=== PATIENT | male | born 1980 | race African-American/Black ===

== ENCOUNTER 2020-10-18 08:26 | Emergency (ER) | payer OTHER, SELFPAY ==
[2020-10-18 08:36] VITALS: BP 161/99; PULSE 88; RESP 20; TEMP 37.2; O2SAT 99
--- NOTE | 2020-10-18 08:40 | ED_ITS ---
HPI - Wound/Laceration General Chief Complaint: Wound/Laceration Stated Complaint: L HAND WOUND Time Seen by Provider: 10/18/20 08:39 History of Present Illness HPI narrative: 40 yo male presents to the ED for hand swelling. He first noted a bump on his left hand near the base of his little finger 2 days ago. Since that time it has become larger and more painful. He now has a small draining wound at the center. No trauma, fever, chills, nausea. Related Data Allergies Allergy/AdvReac Type Severity Reaction Status Date / Time No Known Allergies Allergy Verified 10/18/20 08:34 Review of Systems Review of Systems: All systems reviewed & are unremarkable except as noted in HPI and below Constitutional: Constitutional: Denies chills, Denies fever(s) and Denies weakness Cardiovascular: Cardiovascular: Denies chest pain Respiratory: Respiratory: Denies dyspnea Gastrointestinal: Gastrointestinal: Denies nausea Musculoskeletal: Musculoskeletal: Denies myalgias Neurologic: Denies numbness and Denies weakness ON LICENSE OF [facility] Past Medical History Medical History (Updated 10/21/20 @ 12:10 by Joselito Galvez MD) Healthy adult Social History Social History Gender identity (if verbalized by the patient): Male Exam Const: General: healthy appearing, no acute distress and alert Orientation/consciousness: patient oriented x3 HENMT: Head: normal to inspection Resp: Effort & Inspection: normal respiratory effort Auscultation: clear to auscultation bilaterally Cardio: Rate: regular rate Rhythm: regular rhythm Skin: Other: Abscess to medial suface of left hand. Small overlying wound with serous drainage. Neuro: General: patient oriented x3, moves all extremities, no focal motor deficits and CN's II-XI intact bilaterally Speech: normal speech Other: distla motor and sensory intact in left hand Extrem: Other: full ROM Course Vital Signs Vital signs: Vital Signs Temperature 37.2 C 10/18/20 08:36 Pulse Rate 88 10/18/20 08:36 Respiratory Rate 20 10/18/20 08:36 Blood Pressure 161/99 H 10/18/20 08:36 Pulse Oximetry 99 10/18/20 08:36 Temperature 37.2 C 10/18/20 08:36 Pulse Rate 80 10/18/20 10:02 Respiratory Rate 20 10/18/20 10:02 Blood Pressure 161/99 H 10/18/20 08:36 Pulse Oximetry 99 10/18/20 10:02 Procedures Abscess I/D hand: Side (if applicable): left Local Anesthetic: lidocaine 1% Amount of anesthesia used (mL): 4 Technique: incised with #11 blade Amount of fluid expressed (mL): 2 Irrigation: Yes Packing used?: iodoform I&D Results: Pus MDM - Wound/Laceration Differential Diagnosis Differential diagnosis: Likely abscess Discharge Plan Discharge Clinical Impression: Abscess Patient Disposition: Home, Self-Care Condition: Stable Instructions: Antibiotic Form, Abscess (ED) Prescriptions: New sulfamethoxazole-trimethoprim [Bactrim DS] 800-160 mg tablet 1 tablet PO Q12H Qty: 20 RF: 0 Follow-up/Referrals: Nick Conroy MD [Physician] - PHYSICIAN,[employer] [Primary Care Provider] -
[2020-10-18] MEDS: TETANUS,DIPHTHERIA,AC PERTUSSIS ADULT (0.5 ML) BOOSTRIX IM (08:49)
[2020-10-18 10:02] VITALS: PULSE 80; RESP 20; O2SAT 99
== END 2020-10-18 10:08 | disposition home or self-care (01) ==
PROVIDERS: Emergency Provider Emergency Medicine
DX: L02.512 Cutaneous abscess of left hand (principal); Z23 Encounter for immunization
CPT/HCPCS: 10061; 26010; 90471; 90715; 99283; A9270